=== PATIENT | female | born 1950 | race African-American/Black ===

== ENCOUNTER 2017-07-22 16:29 | Emergency (ER) | payer OTHER ==
[~2017-07-22 16:29] MED LIST: ACETAMINOPHEN1 EAC4 PO; ACID CONTROL150 MG PO; ALBUTEROL SULF8.5 GM IH; ALBUTEROL2.5 MG/3 M IH; ASPIR-LOW81 MG PO; ATORVASTATIN CA40 MG PO; AUGMENTIN875 MG PO; BACTRIM,SEPT1 TABLET PO; BENZONATATE100 MG PO; BUPROPION XL150 MG PO; CLOPIDOGREL75 MG PO; DELTASONE20 M1 PO; EFFEXOR100 MG PO; EFFEXOR75 MG PO; GLIPIZIDE XL5 MG PO; GLUCOTROL XL5 MG PO; GLYBURIDE5 MG PO; HYDROCODON-ACE1 EAC7 PO; IBUPROFEN600 MG PO; IMDUR120 MG PO; JANUVIA100 MG PO; KEFLEX500 MG PO; LEVOCETIRIZINE D5 MG PO; LIPITOR40 MG PO; LISINOPRIL10 MG PO; LITE COAT ASPI325 M1 PO; LO-DOSE ASPIRIN81 M1 PO; LOPRESSOR25 MG PO; LOW DOSE ASPIRI81 M1 PO; METFORMIN HCL500 MG PO; METOPROLOL PO; METOPROLOL TART25 MG PO; MONTELUKAST SOD10 MG PO; MOTRIN600 MG PO; NAPROXEN SODIU550 MG PO; NEXIUM40 MG PO; PERCOCET 5/31 TABLET PO; PLAVIX75 MG PO; PREDNISONE10 M1 PO; PREDNISONE20 MG PO; PROAIR HFA8.5 GM IH; PROVENTIL,2.5 MG/3 M IH; RANEXA1000 MG PO; RANEXA500 MG PO; RANITIDINE HCL300 MG PO; ROBITUSSIN AC,T10 ML PO; SIMVASTATIN20 MG PO; SINGULAIR10 MG PO; SYMBICORT60 INHALAT IH; TRIAMCINOLONE A15 GM TP; TRULICITY0.75 MG/0. SC; TYLENOL PM1 CAPLET PO; WELLBUTRIN XL150 MG PO; ZANTAC150 MG PO; ZOCOR20 MG PO
[2017-07-22 16:56] LABS: EOSINOPHIL (%) 3.5 % (0-5); EOSINOPHIL COUNT 0.2 K/uL (0-0.3); HEMATOCRIT 35.4 % (36.0-46.0); IMMATURE GRANULOCYTE (%) 0.2 % (0.0-0.7); LYMPHOCYTE COUNT 2.2 K/uL (1.0-2.8); MCH 28.7 PG (29.0-34.0); MCHC 35.3 G/DL (30.0-36.0); MCV 81.2 FL (83-99); MEAN PLAT.VOLUME 10.1 uM^3 (9.5-12.4); MONOCYTE COUNT 0.4 K/uL (0-0.8); NEUTROPHIL (%) 41.4 % (45-76); PLATELET COUNT 190 K/uL (156-360); RBC DIS.WIDTH-CV 12.5 % (11.8-14.6); RBC DIS.WIDTH-SD 36.8 % (39-53); RED BLOOD COUNT 4.36 M/uL (3.80-5.20); WHITE BLOOD COUNT 4.9 K/uL (4.1-10.2)
[2017-07-22 17:04] LABS: AMYLASE 83 IU/L (1-118); CHLORIDE 103 mEq/L (99-109); POTASSIUM 3.8 mEq/L (3.7-5.4); SODIUM 137 mEq/L (136-147)
[2017-07-22 17:05] LABS: GLUCOSE 134 mg/dL (70-99)
[2017-07-22 17:07] LABS: ANION GAP 14 MEQ/L (2-14)
[2017-07-22 17:09] LABS: GFR ESTIMATE (CALCULATED) 48 mL/min/; SERUM ETHYL ALCOHOL < 10 mg/dL
[2017-07-22 17:10] LABS: UREA NITROGEN (BUN) 18 mg/dL (9-23)
[2017-07-22 17:12] LABS: LIPASE 43 U/L (1.0-51.0)
[2017-07-22 17:48] LABS: ADD MIUA? YES; BILIRUBIN NEGATIVE; BLOOD NEGATIVE; COLOR YELLOW ((YELLOW)); GLUCOSE (STRIP) NEGATIVE; KETONES NEGATIVE; LEUKOCYTES SMALL; NITRITE NEGATIVE; PROTEIN (STRIP) 100; SPECIFIC GRAVITY 1.023 (1.000-1.030); UROBILINOGEN 0.2 MG/DL (0.2-1.0)
[2017-07-22 17:52] LABS: BACTERIA NONE SEEN /HPF; EPITHELIAL CELLS 1+ /HPF; MUCUS TRACE /LPF; RED BLOOD CELLS 0-5 /HPF (0-5); UCUL ADDED? NO; WHITE BLOOD CELLS 0-5 /HPF (0-5)
[2017-07-22 17:56] LABS: AMPHETAMINE NEGATIVE (500 ng/mL); BARBITURATES NEGATIVE (200 ng/mL); BENZODIAZEPINES NEGATIVE (150 ng/mL); COCAINE NEGATIVE (150 ng/mL); INTERNAL CONTROLS VALID? YES; METHADONE NEGATIVE (200 ng/mL); METHAMPHETAMINE NEGATIVE (500 ng/mL); OPIATES (MORPHINE) NEGATIVE (100 ng/mL); OXYCODONE NEGATIVE (100 ng/mL); PHENCYCLIDINE NEGATIVE (25 ng/mL); PROPOXYPHENE NEGATIVE (300 ng/mL); THC CANNABINOIDS NEGATIVE (50 ng/mL); TRICYCLIC ANTIDEPRESSANTS NEGATIVE (300 ng/mL)
== END 2017-07-22 19:01 | disposition home or self-care (01) ==
LOC: TRA 16:29
PROVIDERS: Emergency Medicine
DX: S06.0X1A Concussion with loss of consciousness of 30 minutes or less, initial encounter (principal); S40.011A Contusion of right shoulder, initial encounter; R07.9 Chest pain, unspecified; M79.601 Pain in right arm; V49.40XA Driver injured in collision with unspecified motor vehicles in traffic accident, initial encounter; W22.10XA Striking against or struck by unspecified automobile airbag, initial encounter; Y92.410 Unspecified street and highway as the place of occurrence of the external cause; I71.2 Thoracic aortic aneurysm, without rupture; I44.7 Left bundle-branch block, unspecified; I10 Essential (primary) hypertension; E11.9 Type 2 diabetes mellitus without complications; Z79.84 Long term (current) use of oral hypoglycemic drugs; Z79.02 Long term (current) use of antithrombotics/antiplatelets; Z79.82 Long term (current) use of aspirin
CPT/HCPCS: 70450; 71010; 71260; 72125; 73030; 73060; 73090; 74177; 80048; 81003; 82150; 83690; 85025; 86850; 86900; 86901; 93005; G0480; J2270; J2405

== ENCOUNTER 2018-05-18 09:07 | Day surgery (SDC) | payer OTHER ==
[2018-05-18 10:38] LABS: CHLORIDE 108 MEQ/L (99-109); CREATININE 1.4 MG/DL (0.6-1.3); GFR ESTIMATE (CALCULATED) 48 mL/min/; GLUCOSE 160 mg/dL (70-99); POTASSIUM 4.9 MEQ/L (3.7-5.4); SODIUM 140 MEQ/L (136-147); UREA NITROGEN (BUN) 19 mg/dL (9-23)
== END 2018-05-18 16:50 | disposition home or self-care (01) ==
LOC: CATH 09:07
PROVIDERS: Internal Medicine Cardiovascular Disease
DX: I25.10 Atherosclerotic heart disease of native coronary artery without angina pectoris (principal); T82.855A Stenosis of coronary artery stent, initial encounter; I10 Essential (primary) hypertension; E11.9 Type 2 diabetes mellitus without complications; I44.7 Left bundle-branch block, unspecified; E78.5 Hyperlipidemia, unspecified; Z79.82 Long term (current) use of aspirin
CPT/HCPCS: 80048; 82948; 93005; C1769; C1887; J1644; J2250; J3010